=== PATIENT | male | born 1955 | race Caucasian/White ===

== ENCOUNTER → 2019-01-08 | Outpatient (CLI) | payer OTHER ==
[~2019-01-08] MED LIST: ANAPROX DS550 MG PO; CLEOCIN HCL150 MG PO; FLOMAX0.4 MG PO; IBU800 M1 PO; KENALOG0.5% TP; MEDROL DOSEPAK4 MG PO; PERCOCET 325 MG1 TA2 PO; VICO10300 PO; VICODIN 5/500 505 MG PO; VISTARIL50 MG PO; ZOFRAN ODT4 MG SL
== END | disposition home or self-care (01) ==
LOC: US 07:10
DX: Z13.6 Encounter for screening for cardiovascular disorders (principal); Z72.0 Tobacco use

== ENCOUNTER 2023-05-31 00:31 | Emergency (ER) | payer OTHER ==
[~2023-05-31] VITALS: Ht 172.7 cm; Wt 74.4 kg
[2023-05-31 01:51] VITALS: BP 138/76
[2023-05-31] MEDS ORDERED: PREDNISONE50 MG PO (02:10)
== END 2023-05-31 02:21 | disposition home or self-care (01) ==
LOC: ED 00:31
DX: R21 Rash and other nonspecific skin eruption (principal); L50.9 Urticaria, unspecified; T39.395A Adverse effect of other nonsteroidal anti-inflammatory drugs [NSAID], initial encounter; M10.9 Gout, unspecified; M19.90 Unspecified osteoarthritis, unspecified site; Z88.8 Allergy status to other drugs, medicaments and biological substances; Z98.890 Other specified postprocedural states; Z87.891 Personal history of nicotine dependence; Y92.89 Other specified places as the place of occurrence of the external cause

== ENCOUNTER 2025-01-15 03:49 | Emergency (ER) | payer OTHER ==
[~2025-01-15] VITALS: Ht 172.7 cm; Wt 74.4 kg
[~2025-01-15 03:49] MED LIST changes: +PREDNISONE50 MG PO
[2025-01-15 03:55] VITALS: BP 163/82
[2025-01-15 04:46] LABS: BASO # 0.1 10*3/uL (0.0-0.1); BASO % 0.5 % (0.0-1.0); EOS # 0.6 10*3/uL (0.0-0.4); EOS % 4.1 % (1.0-4.0); HEMATOCRIT 43.1 % (42.0-52.0); MEAN CELL VOLUME 89.2 fl (80.0-94.0); MEAN CORPUSCULAR HGB 29.6 pg (27.0-31.0); MEAN CORPUSCULAR HGB CONC 33.2 g/dl (33.0-37.0); MEAN PLATELET VOLUME 10.7 fl (9.6-12.3); MONO % 6.9 % (3.0-9.0); PLATELET COUNT AUTOMATED 224 10*3/uL (130-400); RED BLOOD COUNT 4.83 10*6/uL (4.50-5.90); RED CELL DISTRI WIDTH 14.1 % (0-14.5); WHITE BLOOD COUNT 14.1 10*3/uL (4.8-10.8)
[2025-01-15 05:08] LABS: BUN 30 mg/dl (9-23); CHLORIDE 108 mmol/L (98-107); POTASSIUM 3.9 mmol/L (3.4-5.1)
[2025-01-15] MEDS ORDERED: methylPREDNISolone sod succ 1,000 MG/16 ML VIAL IM ONE (05:45)
[2025-01-15] MEDS ORDERED: methylPREDNISolone sod succ 125 MG VIAL IM ONE (06:20)
[2025-01-15] MEDS ORDERED: PREDNISONE10 M1 PO (06:30)
== END 2025-01-15 06:30 | disposition home or self-care (01) ==
LOC: ED 03:49
PROVIDERS: Emergency Medicine
DX: N28.9 Disorder of kidney and ureter, unspecified (principal); M10.372 Gout due to renal impairment, left ankle and foot; Z79.899 Other long term (current) drug therapy; Z88.8 Allergy status to other drugs, medicaments and biological substances; Z98.890 Other specified postprocedural states

== ENCOUNTER 2025-05-04 16:15 | Emergency (ER) | payer OTHER ==
[~2025-05-04 16:15] MED LIST changes: +PREDNISONE10 M1 PO
[2025-05-04 16:24] VITALS: BP 170/94
[2025-05-04] MEDS ORDERED: Acetaminophen/Oxycodone 5 MG/325 MG TABLET PO ONE (16:30)
[2025-05-04] MEDS ORDERED: MELOXICAM15 MG PO (16:47)
== END 2025-05-04 17:21 | disposition home or self-care (01) ==
LOC: ED 16:15
DX: S43.401A Unspecified sprain of right shoulder joint, initial encounter (principal); M10.9 Gout, unspecified; M19.90 Unspecified osteoarthritis, unspecified site; Z88.8 Allergy status to other drugs, medicaments and biological substances; X50.0XXA Overexertion from strenuous movement or load, initial encounter; Y93.89 Activity, other specified; Y92.89 Other specified places as the place of occurrence of the external cause; Y99.8 Other external cause status

== ENCOUNTER → 2025-05-08 | Emergency (ER) | payer OTHER ==
[~2025-05-08] VITALS: Ht 172.7 cm; Wt 73.0 kg
[~2025-05-08] MED LIST changes: +MELOXICAM15 MG PO
[2025-05-08 09:16] VITALS: BP 176/102
[2025-05-08 09:59] LABS: BASO # 0.1 10*3/uL (0.0-0.1); BASO % 0.6 % (0.0-1.0); EOS # 0.4 10*3/uL (0.0-0.4); EOS % 3.4 % (1.0-4.0); MEAN CELL VOLUME 89.1 fl (80.0-94.0); MEAN CORPUSCULAR HGB 30.0 pg (27.0-31.0); MEAN PLATELET VOLUME 10.2 fl (9.6-12.3); MONO # 0.7 10*3/uL (0.1-1.0); MONO % 6.3 % (3.0-9.0); NEUT # 8.1 10*3/uL (2.3-7.9); NEUT % 69.3 % (47.0-73.0); NUCLEATED RED BLOOD CELL 0.0 % (0.0-0.0); NUCLEATED RED BLOOD CELL 0.0 10*3/uL (0.0-0.0); PLATELET COUNT AUTOMATED 210 10*3/uL (130-400); RED CELL DISTRI WIDTH 14.2 % (0-14.5)
== END ==
LOC: ED 08:59
PROVIDERS: Student in an Organized Health Care Education/Training Program
DX: S46.211A Strain of muscle, fascia and tendon of other parts of biceps, right arm, initial encounter (principal); X50.1XXA Overexertion from prolonged static or awkward postures, initial encounter; Z88.1 Allergy status to other antibiotic agents; Z88.8 Allergy status to other drugs, medicaments and biological substances; Z79.899 Other long term (current) drug therapy; Y93.89 Activity, other specified; Y92.89 Other specified places as the place of occurrence of the external cause; Y99.8 Other external cause status